=== PATIENT | male | born 1935 | race Caucasian/White ===

== ENCOUNTER 2018-08-14 17:52 | Emergency (ER) | payer OTHER ==
[~2018-08-14] VITALS: Ht 175.3 cm; Wt 72.6 kg
[~2018-08-14 17:52] MED LIST: ASA81 MG; COZAAR25 MG; LIPITOR20 MG
[2018-08-14] MEDS ORDERED: PLAVIX75 MG PO (17:59)
== END 2018-08-14 20:45 | disposition home or self-care (01) ==
LOC: ER 17:52
DX: R10.13 Epigastric pain (principal); R53.81 Other malaise